=== PATIENT | female | born 1935 | race Caucasian/White ===

== ENCOUNTER → 2016-08-14 | Outpatient (CLI) | payer MEDICARE, BC ==
[~2016-08-14] MED LIST: PREVACID30 MG PO; WELLBUTRIN PO
== END ==
LOC: COL.RAD 10:37
DX: K44.9 Diaphragmatic hernia without obstruction or gangrene (principal); K21.9 Gastro-esophageal reflux disease without esophagitis; K22.8 Other specified diseases of esophagus

== ENCOUNTER → 2017-05-07 | Outpatient (CLI) | payer MEDICARE, BC | LOC: MC.RAD 09:17 | DX: Z12.31 Encounter for screening mammogram for malignant neoplasm of breast (principal) ==

== ENCOUNTER → 2017-06-20 | Outpatient (CLI) | payer MEDICARE, BC | LOC: COL.RAD 10:22 | DX: M71.22 Synovial cyst of popliteal space [Baker], left knee (principal) ==

== ENCOUNTER → 2018-05-22 | Outpatient (CLI) | payer MEDICARE, BC | LOC: MC.RAD 10:05 | DX: Z12.31 Encounter for screening mammogram for malignant neoplasm of breast (principal) ==

== ENCOUNTER → 2019-06-17 | Outpatient (CLI) | payer MEDICARE, BC ==
[~2019-06-17] MED LIST changes: +ASPIRIN 81M81 MG/TA2 PO; +B-121000 MCG PO; +ICAPS TABLET1 EACH PO; +PRAVACHOL 40MG40 MG PO; +PRILOTC PO; +PROBIOTIC FORMU1 CAP PO; +SYNTHROID0.05 MG/TA PO; +SYSTANE 0.4%-0.1 SOL OP; +VITAMIN D 1001000 IU PO; -WELLBUTRIN PO; +WELLBUTRIN SR150 M1 PO
== END ==
LOC: MC.RAD 11:36
DX: Z12.31 Encounter for screening mammogram for malignant neoplasm of breast (principal)

== ENCOUNTER → 2020-06-20 | Outpatient (CLI) | payer MEDICARE, BC ==
[~2020-06-20] MED LIST changes: +LIPITOR20 MG PO
== END ==
LOC: MC.RAD 09:37
DX: Z12.31 Encounter for screening mammogram for malignant neoplasm of breast (principal)

== ENCOUNTER 2020-06-22 11:54 | Emergency (ER) | payer MEDICARE, BC ==
[~2020-06-22] VITALS: Ht 149.9 cm; Wt 72.7 kg
[~2020-06-22 11:54] MED LIST changes: -LIPITOR20 MG PO
[2020-06-22 13:10] LABS: ALANINE AMINOTRANSFERASE 39 U/L (4-34); ALBUMIN 4.2 gm/dL (3.5-5.0); ALKALINE PHOSPHATASE 81 U/L (50-136); ANION GAP 7 mmol/L (7-16); AST,SGOT 45 U/L (15-37); BILIRUBIN,TOTAL 0.6 mg/dL (0.0-1.0); BLOOD UREA NITROGEN 13 mg/dL (7-17); CALCIUM 9.8 mg/dL (8.4-10.2); CARBON DIOXIDE 32 mmol/L (22-30); CHLORIDE 101 mmol/L (98-107); CREATINE KINASE 530 U/L (30-135); CREATININE, serum 0.79 (0.52-1.25); GLUCOSE 88 mg/dL (74-106); POTASSIUM 4.3 mmol/L (3.4-5.0); SODIUM 139 mmol/L (137-145); TOTAL PROTEIN 7.1 gm/dL (6.4-8.2)
[2020-06-22 13:25] LABS: TROPONIN-I < 0.012 ng/mL (0.000-0.035)
[2020-06-22 13:28] LABS: BASO % 0.2 % (0.0-2.0); EOS # 0.1 (0.0-0.7); EOS % 0.7 % (0-4.0); GRAN # 5.6 (1.4-6.5); GRAN % 69.9 % (42.2-75.2); HEMATOCRIT 43.3 % (37.0-47.0); HEMOGLOBIN 14.2 g/dl (12.5-16.0); LYMPH # 1.6 (1.2-3.4); LYMPH % 19.8 % (20.0-51.0); MEAN CELL VOLUME 93 fl (80.0-100.0); MEAN CORPUSCULAR HEMOGLOBIN 31 pg (27.0-31.0); MEAN CORPUSCULAR HGB CONC 33 g/dl (33.0-37.0); MEAN PLATELET VOLUME 10.5 fl (7.4-10.4); MONO # 0.7 (0.1-0.6); PLATELET COUNT 278 K/mm3 (130-400); RED BLOOD COUNT 4.65 M/mm3 (4.10-5.30)
[2020-06-22 13:43] LABS: COLLECTION METHOD CLEAN CATCH
[2020-06-22 14:07] LABS: AMORPHOUS CRYSTAL Present /uL; PH 8 (5-8); SQUAMOUS EPITHELIAL None Seen /hpf; URINE APPEARANCE Hazy; URINE BACTERIA Rare /hpf; URINE BILIRUBIN Negative (NEGATIVE); URINE BLOOD Negative (NEGATIVE); URINE COLOR Straw; URINE GLUCOSE Negative (NEGATIVE); URINE KETONE Negative (NEGATIVE); URINE LEUKOCYTE ESTERASE Negative (NEGATIVE); URINE NITRATE Negative (NEGATIVE); URINE PROTEIN(semi-quant) Negative (NEGATIVE); URINE RBC 0-2 /hpf; URINE UROBILINOGEN Negative (NEGATIVE)
[2020-06-22] MEDS ORDERED: LIPITOR20 MG PO (14:18)
[2020-06-22 14:19] LABS: INR 1.1 (0.8-3.0); PROTHROMBIN TIME 12.1 SECONDS (9.7-12.8)
[2020-06-22 15:49] VITALS: BP 109/51; PULSE 75; TEMP 98
== END 2020-06-22 15:51 | disposition home or self-care (01) ==
LOC: COL.ER 11:54
PROVIDERS: Family Medicine; Nurse Practitioner Primary Care
DX: R41.0 Disorientation, unspecified (principal); E03.9 Hypothyroidism, unspecified; E78.5 Hyperlipidemia, unspecified; K21.9 Gastro-esophageal reflux disease without esophagitis; F41.9 Anxiety disorder, unspecified; F32.9 Major depressive disorder, single episode, unspecified; Z90.710 Acquired absence of both cervix and uterus; Z90.89 Acquired absence of other organs; Z79.890 Hormone replacement therapy
CPT/HCPCS: J7030

== ENCOUNTER → 2021-07-11 | Outpatient (CLI) | payer MEDICARE, BC ==
[~2021-07-11] MED LIST changes: +LIPITOR20 MG PO
== END ==
LOC: MC.RAD 10:58
DX: Z12.31 Encounter for screening mammogram for malignant neoplasm of breast (principal)

== ENCOUNTER → 2022-08-21 | Outpatient (CLI) | payer MEDICARE, BC | LOC: MC.RAD 10:14 | DX: Z12.31 Encounter for screening mammogram for malignant neoplasm of breast (principal) ==

== ENCOUNTER → 2023-09-03 | Outpatient (CLI) | payer MEDICARE, BC ==
[2005-01-08 09:45] VITALS: BP 112/51; PULSE 77; TEMP 97.4
== END ==
LOC: MC.RAD 11:30
DX: Z12.31 Encounter for screening mammogram for malignant neoplasm of breast (principal)